=== PATIENT | male | born 1995 | race Caucasian/White ===

== ENCOUNTER 2024-01-21 10:07 | Emergency (ER) | payer MEDICAID ==
[~2024-01-21] VITALS: Ht 165.1 cm; Wt 69.1 kg
[2024-01-21 10:13] VITALS: BP 110/65; PULSE 62; RESP 16; TEMP 98; O2SAT 98
[2024-01-21] MEDS: KETOROLAC 30 MG/ML VIAL IM ONE (11:48)
[2024-01-21] MEDS: LIDOCAINE 5% 1 EA PATCH TP ONE (11:49)
[2024-01-21] MEDS: CYCLOBENZAPRINE 10 MG TAB PO ONE (11:49)
[2024-01-21] MEDS ORDERED: ACET-10509 PO (12:36)
[2024-01-21] MEDS ORDERED: LID5T TP (12:36)
[2024-01-21] MEDS ORDERED: IBUP-2213 PO (12:36)
[2024-01-21] MEDS ORDERED: CYCL-711 PO (12:36)
[2024-01-21 13:05] VITALS: BP 112/63; PULSE 70; RESP 16; TEMP 98; O2SAT 99
== END 2024-01-21 13:05 | disposition home or self-care (01) ==
LOC: MED 10:07 → EDBD 10:07 → MED 13:05
DX: S22.31XA Fracture of one rib, right side, initial encounter for closed fracture (principal); Z90.49 Acquired absence of other specified parts of digestive tract; Z79.899 Other long term (current) drug therapy; W18.39XA Other fall on same level, initial encounter; Y92.89 Other specified places as the place of occurrence of the external cause; Y93.89 Activity, other specified; Y99.8 Other external cause status
CPT/HCPCS: 71101; 96372; 99283; J1885